=== PATIENT | male | born 1965 ===

== ENCOUNTER 2024-12-04 06:17 | Day surgery (SDC) | payer BC ==
[2024-12-04] MEDS: Lactated Ringers 1,000 ML IV SCH (06:45)
[2024-12-04] MEDS ORDERED: propofoL 500 MG/50 ML 50 ML ONE (10:09)
[2024-12-04] MEDS ORDERED: Glycopyrrolate 0.2 MG/ML SDV ONE ×2 (10:12→10:17)
[2024-12-04] MEDS ORDERED: Lactated Ringers 1,000 ML IV SCH (10:30)
== END 2024-12-04 11:15 | disposition home or self-care (01) ==
LOC: MW.SDS 06:17
PROVIDERS: ATTEND Surgery
DX: Z12.11 Encounter for screening for malignant neoplasm of colon (principal); K57.30 Diverticulosis of large intestine without perforation or abscess without bleeding; I10 Essential (primary) hypertension; E78.00 Pure hypercholesterolemia, unspecified; K21.9 Gastro-esophageal reflux disease without esophagitis; Z87.891 Personal history of nicotine dependence; Z79.899 Other long term (current) drug therapy
CPT/HCPCS: 45378; J1596; J2704; J7120; 00812